=== PATIENT | female | born 1980 | race Caucasian/White ===

== ENCOUNTER 2022-05-11 04:21 | Emergency (ER) | payer MEDICAID ==
[~2022-05-11] VITALS: Ht 177.8 cm; Wt 60.0 kg
[2022-05-11 04:24] VITALS: BP 132/86
== END 2022-05-11 05:26 | disposition left against medical advice (07) ==
LOC: ER 04:22
DX: K08.89 Other specified disorders of teeth and supporting structures (principal); Z53.21 Procedure and treatment not carried out due to patient leaving prior to being seen by health care provider

== ENCOUNTER 2024-12-01 12:27 | Emergency (ER) | payer MEDICAID ==
[~2024-12-01] VITALS: Ht 177.8 cm; Wt 65.8 kg
[2024-12-01 12:36] VITALS: BP 122/80; PULSE 95; RESP 16; O2SAT 100
[2024-12-01] MEDS ORDERED: HYDR-3965 PO (13:23)
[2024-12-01] MEDS ORDERED: IBUP-1984 PO (13:23)
[2024-12-01] MEDS ORDERED: PENI500T2 PO (13:23)
[2024-12-01 13:44] VITALS: TEMP 98.2
== END 2024-12-01 13:46 | disposition home or self-care (01) ==
LOC: ER 12:27
DX: K04.7 Periapical abscess without sinus (principal); K02.9 Dental caries, unspecified; F12.90 Cannabis use, unspecified, uncomplicated
CPT/HCPCS: 99283; 99285